=== PATIENT | female | born 1990 | race Caucasian/White ===

== ENCOUNTER 2019-10-08 13:28 | Emergency (ER) | payer OTHER ==
--- NOTE | 2019-10-08 13:50 | ER Document Report ---
ED Medical Screen (RME) - General Chief Complaint: Syncope Stated Complaint: POSSIBLE SYNCOPE/HEADACHE Time Seen by Provider: 10/08/19 13:45 Mode of Arrival: Ambulatory Information source: Patient Notes: 29-year-old female presented to ED after a syncopal episode last night. She states that she went to bed about 10:00 and sometime during the night she woke up in the floor between the bathroom in the bedroom. She states she must have gotten up and gone to the bathroom and fallen. She does not remember getting up or falling. She states she did not look at the clock at the time. She states she did get up at 630 this morning to go to work so sometime between 10:00 last night and 630 this morning. She does not know how long she was on the floor. Any having a headache now for any head of the back. She states she does have a headache to the back of her head left eyebrow and behind her nose. States she does feel tender above her left eyebrow. She states she does have tenderness to the back of her head also to palpation. Patient is alert oriented respirations regular nonlabored speaking in full sentences. States she has not had any histories of syncopal episodes in the past. I have greeted and performed a rapid initial assessment of this patient. A comprehensive ED assessment and evaluation of the patient, analysis of test results and completion of medical decision making process will be conducted by an additional ED providers. Past Medical History - General Information source: Patient - Social History Cigarette use (# per day): No Chew tobacco use (# tins/day): No Frequency of alcohol use: Social Drug Abuse: None Lives with: Friend Family history: Reviewed & Not Pertinent - Past Medical History Cardiac Medical History: Reports: None Pulmonary Medical History: Reports: None EENT Medical History: Reports: None Neurological Medical History: Reports: None Endocrine Medical History: Reports: None Renal/ Medical History: Reports: None Malignancy Medical History: Reports: None GI Medical History: Reports: None Musculoskeltal Medical History: Reports None 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
[2019-10-08 14:32] LABS: ABSOLUTE BASOPHILS # (AUTO) 0.1 10^3/uL (0.0-0.2); ABSOLUTE EOSINOPHILS # (AUTO) 0.3 10^3/uL (0.0-0.6); ABSOLUTE LYMPHOCYTES (AUTO) 2.7 10^3/uL (0.5-4.7); ABSOLUTE MONOCYTES (AUTO) 0.4 10^3/uL (0.1-1.4); ABSOLUTE NEUT (AUTO) 5.2 10^3/uL (1.7-8.2); BASOPHILS % (AUTO) 1.1 % (0-2); EOSINOPHILS % (AUTO) 3.1 % (0-6); HEMATOCRIT 36.2 % (36.0-47.0); HEMOGLOBIN 12.4 g/dL (12.0-15.5); LYMPHOCYTES % (AUTO) 30.8 % (13-45); MEAN CORPUSCULAR HEMOGLOBIN 27.5 pg (27.0-33.4); MEAN CORPUSCULAR HGB CONC 34.2 g/dL (32.0-36.0); MEAN CORPUSCULAR VOLUME 80 fl (80-97); MONOCYTES % (AUTO) 4.5 % (3-13); PLATELET COUNT 362 10^3/uL (150-450); RED BLOOD COUNT 4.52 10^6/uL (3.72-5.28); RED CELL DISTRIBUTION WIDTH 13.9 % (11.5-14.0); SEGMENTED NEUTROPHILS % (AUTO) 60.5 % (42-78); TOTAL CELLS COUNTED % (AUTO) 100 %; WHITE BLOOD COUNT 8.7 10^3/uL (4.0-10.5)
[2019-10-08 14:38] LABS: APPEARANCE,URINE SLIGHTLY-CLOUDY; BILIRUBIN,URINE NEGATIVE (NEGATIVE); COLOR,URINE YELLOW; GLUCOSE, URINE NEGATIVE (NEGATIVE); KETONES,URINE NEGATIVE (NEGATIVE); PROTEIN,URINE NEGATIVE (NEGATIVE); URINE SPECIFIC GRAVITY 1.014; UROBILINOGEN,URINE NEGATIVE mg/dL (<2.0)
--- NOTE | 2019-10-08 14:39 | EKG REPORT ---
SEVERITY:- NORMAL ECG - SINUS RHYTHM : Confirmed by: Zina Kidd 08-Oct-2019 14:39:02
[2019-10-08 14:54] LABS: ALBUMIN 4.3 g/dL (3.5-5.0); ALKALINE PHOSPHATASE 89 U/L (38-126); ANION GAP 7 (5-19); ASPARTATE AMINO TRANSFERASE 22 U/L (14-36); BILIRUBIN,TOTAL 0.3 mg/dL (0.2-1.3); BLOOD UREA NITROGEN 9 mg/dL (7-20); CALCIUM 9.6 mg/dL (8.4-10.2); CARBON DIOXIDE 29 mmol/L (22-30); CHLORIDE 103 mmol/L (98-107); GLUCOSE 118 mg/dL (75-110); POTASSIUM 4.1 mmol/L (3.6-5.0); TOTAL PROTEIN 7.6 g/dL (6.3-8.2)
--- NOTE | 2019-10-08 18:02 | ER Document Report ---
ED General - General Chief Complaint: Syncope Stated Complaint: POSSIBLE SYNCOPE/HEADACHE Time Seen by Provider: 10/08/19 13:45 Mode of Arrival: Ambulatory Information source: Patient Notes: 29-year-old female with no prior history presents to the emergency department with reports that she went to bed last night around 10:00 and when she woke up in the middle night and found herself on the floor. She reports the back of her head hurts as well as the left side of her forehead. Patient reports she does take medications at bedtime Zoloft help her with her depression. She denies recent cold symptoms denies fever vomiting diarrhea. She reports she is always nauseated due to her anxiety. She reports she has been drinking voiding bowel movement as normal. 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 She denies . Reports she is never had any issues with syncope. Reports she has never had any issues with sleepwalking. Patient started taking Zoloft approximately 3 months ago. TRAVEL OUTSIDE OF THE [place] IN LAST 30 DAYS: No - HPI Onset: This morning - Early Quality of pain: Achy Associated symptoms: None. denies: Diarrhea, Nausea, Vomiting Exacerbated by: Denies Relieved by: Denies Similar symptoms previously: No Recently seen / treated by doctor: No - Related Data Allergies/Adverse Reactions: lactase [From [employer]] Allergy (Verified 10/08/19 13:54) peanut Adverse Reaction (Verified 10/08/19 13:54) Penicillins Adverse Reaction (Verified 10/08/19 13:54) Past Medical History - General Information source: Patient Last Menstrual Period: 2 weeks ago - Social History Smoking Status: Never Smoker Cigarette use (# per day): No Chew tobacco use (# tins/day): No Frequency of alcohol use: Social Drug Abuse: None Lives with: Friend Family History: None Patient has suicidal ideation: No Patient has homicidal ideation: No - Past Medical History Cardiac Medical History: Reports: None Pulmonary Medical History: Reports: Hx Asthma EENT Medical History: Reports: None Neurological Medical History: Reports: None Endocrine Medical History: Reports: None Malignancy Medical History: Reports: None GI Medical History: Reports: None Musculoskeletal Medical History: Reports None 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 Psychiatric Medical History: Reports: Hx Anxiety, Hx Depression Traumatic Medical History: Reports: None Infectious Medical History: Reports: None Surgical Hx: Negative Past Surgical History: Reports: Hx Tonsillectomy - Immunizations Immunizations up to date: Yes Review of Systems - Review of Systems Notes: Review HPI for review of systems., All other systems negative Physical Exam - Vital signs Vitals: Temp Pulse Resp BP Pulse Ox 98.2 F 79 18 136/94 H 100 10/08/19 13:34 10/08/19 13:34 10/08/19 13:34 10/08/19 13:34 10/08/19 13:34 - General General appearance: Appears well, Alert In distress: None - HEENT Head: Normocephalic, Tenderness. No: Atraumatic, Abrasions, Duncan's sign, Ecchymosis, [place]'s eyes Eyes: Normal Conjunctiva: Normal Extraocular movements intact: Yes Eyelashes: Normal Pupils: PERRL Ears: Normal External canal: Normal Tympanic membrane: Normal Mouth/Lips: Normal Mucous membranes: Normal, Moist Pharynx: Normal Neck: Normal, Supple. No: Lymphadenopathy - Respiratory Respiratory status: No respiratory distress Chest status: Nontender Breath sounds: Normal Chest palpation: Normal - Cardiovascular Rhythm: Regular Heart sounds: Normal auscultation, S1 appreciated, S2 appreciated - Abdominal Inspection: Normal Distension: No distension Bowel sounds: Normal Tenderness: Nontender Organomegaly: No organomegaly - Back Back: Normal, Nontender. No: CVA tenderness, Vertebra tenderness - Extremities General upper extremity: Normal ROM General lower extremity: Normal ROM - Neurological Neuro grossly intact: Yes Cognition: Normal Orientation: AAOx4 Maribel Coma Scale Eye Opening: Spontaneous Maribel Coma Scale Verbal: Oriented Maribel Coma Scale Motor: Obeys Commands Maribel Coma Scale Total: 15 Speech: Normal - Psychological Associated symptoms: Normal affect, Normal mood - Skin Skin Temperature: Warm Skin Moisture: Dry Skin Color: Normal Course - Re-evaluation Re-evalutation: 10/08/19 18:59 29-year-old female that reports that she went to bed at 10:00 last night and woke up in the middle night laying on the floor by the bathroom. She reports the back of her head is sore as well as her left side of her forehead. She does not remember how she got there. She denies history of syncope. Denies history of sleepwalking. Patient is benign. Alert and oriented answering all questions appropriately. Labs are unremarkable urine has leukocytes in it but patient denies urinary frequency denies pain with void. Patient reports she started Zoloft 3 months ago. She denies other new medications. Patient does have an appointment with her primary care provider this Sunday. She was instructed on all results. She was instructed to make sure she is eating drinking and follow- up with the primary care provider. She was instructed to return here for any concerns. Laboratory 10/08/19 10/08/19 10/08/19 14:16 14:16 14:16 WBC 8.7 RBC 4.52 Hgb 12.4 Hct 36.2 MCV 80 MCH 27.5 MCHC 34.2 RDW 13.9 Plt Count 362 Lymph % (Auto) 30.8 [place] % (Auto) 4.5 Eos % (Auto) 3.1 Baso % (Auto) 1.1 Absolute Neuts (auto) 5.2 Absolute Lymphs (auto) 2.7 Absolute Monos (auto) 0.4 Absolute Eos (auto) 0.3 Absolute Basos (auto) 0.1 Seg Neutrophils % 60.5 Sodium 138.5 Potassium 4.1 Chloride 103 Carbon Dioxide 29 Anion Gap 7 BUN 9 Creatinine 0.64 Est GFR ( Amer) > 60 Est GFR (MDRD) Non-Af > 60 Glucose 118 H Calcium 9.6 Total Bilirubin 0.3 Direct Bilirubin 0.0 Neonat Total Bilirubin Not Reportable Neonat Direct Bilirubin Not Reportable Neonat Indirect Bili Not Reportable AST 22 ALT 18 Alkaline Phosphatase 89 Total Protein 7.6 Albumin 4.3 Lipase 135.6 Serum HCG, Qual NEGATIVE Urine Color Urine Appearance Urine pH Ur Specific [place] Urine Protein Urine Glucose (UA) Urine Ketones Urine Blood Urine Nitrite (Reflex) Urine Bilirubin Urine Urobilinogen Leukocyte Esterase Rfl Urine RBC (Auto) Urine Bacteria (Auto) Urine WBC (Reflex) Squamous Epi Cells Auto Urine Mucus (Auto) Urine Ascorbic Acid 10/08/19 14:16 WBC RBC Hgb Hct MCV MCH MCHC RDW Plt Count Lymph % (Auto) [place] % (Auto) Eos % (Auto) Baso % (Auto) Absolute Neuts (auto) Absolute Lymphs (auto) Absolute Monos (auto) Absolute Eos (auto) Absolute Basos (auto) Seg Neutrophils % Sodium Potassium Chloride Carbon Dioxide Anion Gap BUN Creatinine Est GFR ( Amer) Est GFR (MDRD) Non-Af Glucose Calcium Total Bilirubin Direct Bilirubin Neonat Total Bilirubin Neonat Direct Bilirubin Neonat Indirect Bili AST ALT Alkaline Phosphatase Total Protein Albumin Lipase Serum HCG, Qual Urine Color YELLOW Urine Appearance SLIGHTLY-CLOUDY Urine pH 6.0 Ur Specific [place] 1.014 Urine Protein NEGATIVE Urine Glucose (UA) NEGATIVE Urine Ketones NEGATIVE Urine Blood NEGATIVE Urine Nitrite (Reflex) NEGATIVE Urine Bilirubin NEGATIVE Urine Urobilinogen NEGATIVE Leukocyte Esterase Rfl LARGE H Urine RBC (Auto) 4 Urine Bacteria (Auto) 3+ Urine WBC (Reflex) 23 Squamous Epi Cells Auto 12 Urine Mucus (Auto) FEW Urine Ascorbic Acid NEGATIVE - Vital Signs Vital signs: Temp Pulse Resp BP Pulse Ox 98.3 F 84 16 109/76 99 10/08/19 18:15 10/08/19 18:15 10/08/19 16:05 10/08/19 18:15 10/08/19 18:15 - Laboratory Result Diagrams: 10/08/19 14:16 10/08/19 14:16 Laboratory results interpreted by me: 10/08/19 10/08/19 14:16 14:16 Glucose 118 H Leukocyte Esterase Rfl LARGE H Discharge - Discharge Clinical Impression: Syncope Qualifiers: Syncope type: unspecified Qualified Code(s): R55 - Syncope and collapse Condition: Stable Disposition: HOME, SELF-CARE Instructions: Syncopal Episode ([facility]) Additional Instructions: *You have been evaluated for syncope episode *Your work-up was unremarkable *Monitor your temperature take Tylenol as indicated *Follow up with a primary care provider Sunday as scheduled *Return to ED for worsening condition, changes, needs, concerns Forms: Return to Work
[2019-10-08 18:17] VITALS: BP 109/76
== END 2019-10-08 18:16 | disposition home or self-care (01) ==
LOC: ER 13:28
DX: R55 Syncope and collapse (principal); R51 Headache; W19.XXXA Unspecified fall, initial encounter; Z79.899 Other long term (current) drug therapy; Z88.8 Allergy status to other drugs, medicaments and biological substances; J45.909 Unspecified asthma, uncomplicated
CPT/HCPCS: 36415; 80053; 81001; 83690; 84703; 85025; 93005; 93010; 99284